=== PATIENT | female | born 1960 | race Caucasian/White ===

== ENCOUNTER → 2016-12-26 | Outpatient (CLI) | payer OTHER, MEDICAID ==
[2015-08-25 20:11] VITALS: BP 180/85
== END ==
LOC: RAD 12:42
PROVIDERS: ATTEND Psychiatry & Neurology Neurology
DX: G40.909 Epilepsy, unspecified, not intractable, without status epilepticus (principal)
CPT/HCPCS: 95819

== ENCOUNTER → 2017-03-11 | Outpatient (CLI) | payer OTHER, MEDICAID ==
[2015-08-25 20:11] VITALS: BP 180/85
== END ==
LOC: RT 09:02
PROVIDERS: ATTEND Psychiatry & Neurology Neurology
DX: G56.03 Carpal tunnel syndrome, bilateral upper limbs (principal)
CPT/HCPCS: 95911

== ENCOUNTER → 2017-03-13 | Outpatient (CLI) | payer OTHER, MEDICAID ==
[2015-08-25 20:11] VITALS: BP 180/85
--- NOTE | 2017-03-13 14:54 | MRI ---
HISTORY: Headache, seizures Study: MRI brain without contrast Comparison: None Technique: Multiplanar multi-sequence MRI of the brain was obtained utilizing standard departmental protocol. Sagittal and axial T1 weighted images were obtained. Axial T2 and flair weighted images were performed as well. Axial diffusion weighted and ADC trace mapping was performed. Findings: The midline structures appear unremarkable. The evaluation of the brain parenchyma demonstrates no abnormal signal characteristics to suggest intraparenchymal mass or hemorrhage. No extra-axial flui d collections are observed. The ventricular system appears symmetric and nondilated. The CP angle is normal in its appearance without brainstem mass or evidence for acoustic neuroma. The flow void s on both T1 and T2 weighted imaging appear unremarkable. Evaluation of the diffusion weighted imag ing does not demonstrate abnormal signal characteristics to suggest acute ischemic change. The extr acranial structures are unremarkable. IMPRESSION: 1. Unremarkable MRI of the brain without contrast. Reported By:
== END ==
LOC: RAD 13:09
PROVIDERS: ATTEND Psychiatry & Neurology Neurology
DX: R29.6 Repeated falls (principal)
CPT/HCPCS: 70551